=== PATIENT | female | born 1975 | race Hispanic/Latino ===

== ENCOUNTER 2020-02-04 16:59 | Emergency (ER) | payer BC, SELFPAY ==
[2020-02-04] MEDS ORDERED: predniSONE 20 MG TAB ONE (17:26)
[2020-02-04] MEDS ORDERED: IPRATROPIUM BROM 0.5MG/2.5ML ONE (17:26)
[2020-02-04] MEDS ORDERED: ALBUTEROL 2.5 MG/3 ML NEB SOL ONE (17:27)
--- NOTE | 2020-02-04 17:45 | RAD REPORT ---
EXAM DESCRIPTION: RAD - Chest Single View - 02/04/2020 5:38 pm CLINICAL HISTORY: Chest pain;SOB COMPARISON: None TECHNIQUE: AP portable chest image was obtained 02/04/2020 5:38 pm . FINDINGS: Lungs are clear. Heart and vasculature are normal. No measurable pleural effusion and no p neumothorax. No acute bony abnormality seen. No acute aortic findings suspected. IMPRESSION: No acute cardiopulmonary process.
[2020-02-04 17:54] LABS: Absolute Lymphocytes (CBC) 1.6 K/uL (0.7-4.9); Basophils % 1.2 % (0-1.3); Hematocrit 38.7 % (36.0-45.0); Lymphocytes % 28.6 % (15.3-44.8); MPV 9.2 fL (7.6-11.3); RBC Red Blood Cell Count 4.29 M/uL (3.86-4.86)
[2020-02-04 18:03] LABS: Protime INR 0.98
[2020-02-04 18:06] LABS: ALT/SGPT 21 U/L (12-78); AST/SGOT 13 U/L (15-37); Albumin 3.8 g/dL (3.4-5.0); Alkaline Phosphatase 62 U/L (45-117); BUN Blood Urea Nitrogen 8 mg/dL (7-18); Bicarbonate 29 mmol/L (21-32); Bilirubin Direct < 0.1 mg/dL (0-0.2); Bilirubin Total 0.2 mg/dL (0.2-1.0); Glucose Level 124 mg/dL (74-106); NT PRO-BNP 29 pg/mL (<125); Potassium 3.5 mmol/L (3.5-5.1); Protein, Total 7.4 g/dL (6.4-8.2); Sodium Level 143 mmol/L (136-145); Troponin (Emerg Dept Use Only) < 0.02 ng/mL (0.0-0.045)
--- NOTE | 2020-02-04 19:36 | ER ---
Nurse's Notes [facility] Name: Lana Bryant Age: 44 yrs Sex: Female : 1975 Arrival Date: 02/04/2020 Time: 17:02 Bed 13 Private MD: Diagnosis: Shortness of breath;Wheezing Presentation: 02/03 17:13 Chief complaint: Patient states: chest tightness for 1 month, denies cough, fever, em reports shortness of breath that has become worse. Coronavirus screen: The patient has NOT traveled to a country currently being monitored by the [facility] within the last 14 days. The patient has NOT had contact with any known and/or suspected case of coronavirus. Ebola Screen: Patient negative for fever greater than or equal to 101.5 degrees Fahrenheit, and additional compatible Ebola Virus Disease symptoms Patient denies exposure to infectious person. Patient denies travel to an Ebola-affected area in the 21 days before illness onset. No symptoms or risks identified at this time. 17:13 Method Of Arrival: Ambulatory em 17:13 Initial Sepsis Screen: Does the patient meet any 2 criteria? No. Patient's initial em sepsis screen is negative. Does the patient have a suspected source of infection? No. Patient's initial sepsis screen is negative. Risk Assessment: Do you want to hurt yourself or someone else? Patient reports no desire to harm self or others. 17:13 Acuity: VINCENT 3 em 19:10 Onset of symptoms is unknown. Triage Assessment: 19:10 Respiratory: the patient reports symptoms have resolved. 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 - Social history:: Smoking status: . Screenin:18 Abuse screen: Denies threats or abuse. Nutritional screening: No deficits noted. em Tuberculosis screening: No symptoms or risk factors identified. Fall Risk None identified. Assessment: 17:35 General: Appears in no apparent distress. uncomfortable, Behavior is calm, cooperative, em Denies fever. Pain: Denies pain. Neuro: Level of Consciousness is awake, alert, obeys commands, Oriented to person, place, time, situation, Appropriate for age. Cardiovascular: Rhythm is regular. 17:35 Respiratory: Reports shortness of breath at rest Airway is patent Respiratory effort is em even, unlabored, Respiratory pattern is regular, symmetrical, Breath sounds with wheezes bilaterally. Onset: The symptoms/episode began/occurred 1 month, Denies cough. Derm: Skin is intact, is healthy with good turgor, Skin is pink, warm \T\ dry. Musculoskeletal: Capillary refill < 3 seconds, Range of motion: intact in all extremities. 18:30 Reassessment: Patient appears in no apparent distress at this time. Patient and/or em family updated on plan of care and expected duration. Pain level reassessed. Patient states feeling better. Patient states symptoms have improved. 19:15 Reassessment: Patient appears in no apparent distress at this time. Patient and/or wh family updated on plan of care and expected duration. Pain level reassessed. Patient is alert, oriented x 3, equal unlabored respirations, skin warm/dry/pink. Vital Signs: 17:13 BP 115 / 66; Pulse 79; Resp 18; Temp 97.8; Pulse Ox 97% on R/A; Weight 74.84 kg; Height em 5 ft. 0 in. (152.40 cm); Pain 0/10; 19:30 BP 111 / 68; Pulse 76; Resp 18; Pulse Ox 99% on R/A; wh 17:13 Body Mass Index 32.22 (74.84 kg, 152.40 cm) em ED Course: 17:02 Patient arrived in ED. ag5 17:07 Javier Johnson, RN is Primary Nurse. em 17:08 Lázaro Munoz NP is PHCP. pm1 17:09 Samy Bolden MD is Attending Physician. pm1 17:17 Arm band placed on. em 17:18 Patient has correct armband on for positive identification. Placed in gown. Bed in low em position. Call light in reach. Adult w/ patient. residential monitor on. Pulse ox on. NIBP on. 17:19 Triage completed. em 17:30 Initial lab(s) drawn, by me, sent to lab. Inserted saline lock: 20 gauge in right em antecubital area, using aseptic technique. Blood collected. 17:39 XRAY Chest (1 view) In Process Unspecified. EDMS 20:00 No provider procedures requiring assistance completed. IV discontinued, intact, bleeding controlled, No redness/swelling at site. Administered Medications: 17:30 Drug: Albuterol - atroVENT (3:1) (2.5 mg - 0.5 mg) 3 ml Route: Nebulizer; em 18:00 Follow up: Response: No adverse reaction; Marked relief of symptoms em 18:06 Drug: predniSONE 60 mg Route: PO; em 19:17 Follow up: Response: No adverse reaction em Outcome: 19:34 Discharge ordered by MD. pm1 20:03 Discharged to home ambulatory. 20:03 Condition: stable 20:03 Discharge instructions given to patient, Instructed on discharge instructions, follow up and referral plans. medication usage, POC Demonstrated understanding of instructions, follow-up care, medications, POC Prescriptions given X 2. 20:04 Patient left the ED. mw2 Signatures: Dispatcher [employer] EDWI Javier Johnson, RN RN em Lázaro Munoz, TEMPERATURE LOGGING OPERATOR TEMPERATURE LOGGING OPERATOR pm1 Cristal Madison Willy Greenwood mw2 Eli Jackson ag5
--- NOTE | 2020-02-04 19:36 | EDPHYS ---
Physician Documentation [facility] Name: Lana Bryant Age: 44 yrs Sex: Female : 1975 Arrival Date: 02/04/2020 Time: 17:02 Bed 13 Private MD: ED Physician Samy Bolden HPI: 02/03 17:25 This 44 yrs old Female presents to ER via Ambulatory with complaints of pm1 Breathing Difficulty. 17:25 Onset: The symptoms/episode began/occurred Chest tightness for 1 month and increased pm1 shortness of breath. Patient reports some wheezing at home. The patient's shortness of breath is aggravated by General allergies. Has been taking antihistamines at home. Has appointment with [facility] tomorrow. Associated signs and symptoms: Pertinent positives: chest pain, Pertinent negatives: non-productive cough, productive cough, fever, vomiting. Severity of symptoms: in the emergency department the symptoms are worse. The patient has not recently seen a physician, has an appointment scheduled, in 1 day(s). 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 - Social history:: Smoking status: . ROS: 17:25 Constitutional: Negative for fever, chills, and weight loss, ENT: Negative for injury, pm1 pain, and discharge, Neck: Negative for injury, pain, and swelling. 17:25 Abdomen/GI: Negative for abdominal pain, nausea, vomiting, diarrhea, and constipation, Back: Negative for injury and pain, MS/Extremity: Negative for injury and deformity, Skin: Negative for injury, rash, and discoloration, Neuro: Negative for headache, weakness, numbness, tingling, and seizure. 17:25 Cardiovascular: Positive for chest pain, Negative for edema, orthopnea, palpitations. 17:25 Respiratory: Positive for shortness of breath, wheezing, Negative for cough. Exam: 17:25 Constitutional: This is a well developed, well nourished patient who is awake, alert, pm1 and in no acute distress. Head/Face: Normocephalic, atraumatic. ENT: Nares patent. No nasal discharge, no septal abnormalities noted. Tympanic membranes are normal and external auditory canals are clear. Oropharynx with no redness, swelling, or masses, exudates, or evidence of obstruction, uvula midline. Mucous membranes moist. Neck: Trachea midline, no thyromegaly or masses palpated, and no cervical lymphadenopathy. Supple, full range of motion without nuchal rigidity, or vertebral point tenderness. No Meningismus. Chest/axilla: Normal chest wall appearance and motion. Nontender with no deformity. No lesions are appreciated. Cardiovascular: Regular rate and rhythm with a normal S1 and S2. No gallops, murmurs, or rubs. Normal PMI, no JVD. No pulse deficits. 17:25 Abdomen/GI: Soft, non-tender, with normal bowel sounds. No distension or tympany. No guarding or rebound. No evidence of tenderness throughout. Back: No spinal tenderness. No costovertebral tenderness. Full range of motion. Skin: Warm, dry with normal turgor. Normal color with no rashes, no lesions, and no evidence of cellulitis. MS/ Extremity: Pulses equal, no cyanosis. Neurovascular intact. Full, normal range of motion. 17:25 Respiratory: the patient does not display signs of respiratory distress, Respirations: normal, Breath sounds: wheezing: that is mild, is heard in the left posterior lower lobe. 17:25 Neuro: Exam negative for acute changes, Orientation: is normal, Motor: is normal, moves all fours. Vital Signs: 17:13 BP 115 / 66; Pulse 79; Resp 18; Temp 97.8; Pulse Ox 97% on R/A; Weight 74.84 kg; Height em 5 ft. 0 in. (152.40 cm); Pain 0/10; 19:30 BP 111 / 68; Pulse 76; Resp 18; Pulse Ox 99% on R/A; wh 17:13 Body Mass Index 32.22 (74.84 kg, 152.40 cm) em MDM: 17:14 Patient medically screened. pm1 19:33 Data reviewed: vital signs. Data interpreted: Pulse oximetry: on room air is 97 %. pm1 Interpretation: normal. Counseling: I had a detailed discussion with the patient and/or guardian regarding: the historical points, exam findings, and any diagnostic results supporting the discharge/admit diagnosis, lab results, radiology results, the need for outpatient follow up, to return to the emergency department if symptoms worsen or persist or if there are any questions or concerns that arise at home. 02/03 17:15 Order name: Basic Metabolic Panel; Complete Time: 18:58 pm1 02/03 17:15 Order name: CBC with Diff pm1 02/03 17:15 Order name: LFT's; Complete Time: 18:58 pm1 02/03 17:15 Order name: Magnesium; Complete Time: 18:58 pm1 02/03 17:15 Order name: NT PRO-BNP; Complete Time: 18:58 pm1 02/03 17:15 Order name: PT-INR; Complete Time: 18:58 pm1 02/03 17:15 Order name: Troponin (emerg Dept Use Only); Complete Time: 18:58 pm1 02/03 17:15 Order name: XRAY Chest (1 view); Complete Time: 17:58 pm1 02/03 17:15 Order name: EKG; Complete Time: 17:17 pm1 02/03 17:15 Order name: Cardiac monitoring; Complete Time: 17:35 pm1 02/03 17:15 Order name: EKG - Nurse/Tech; Complete Time: 18:27 pm1 02/03 18:09 Order name: CBC Smear Scan EDMS 02/03 17:15 Order name: IV Saline Lock; Complete Time: 17:35 pm1 02/03 17:15 Order name: Labs collected and sent; Complete Time: 17:35 pm1 02/03 17:15 Order name: O2 Per Protocol; Complete Time: 17:35 pm1 02/03 17:15 Order name: O2 Sat Monitoring; Complete Time: 17:35 pm1 Administered Medications: 17:30 Drug: Albuterol - atroVENT (3:1) (2.5 mg - 0.5 mg) 3 ml Route: Nebulizer; em 18:00 Follow up: Response: No adverse reaction; Marked relief of symptoms em 18:06 Drug: predniSONE 60 mg Route: PO; em 19:17 Follow up: Response: No adverse reaction em Disposition: 02/04 07:16 Co-signature as Attending Physician, Samy Bolden MD. rn Disposition: 02/04/20 19:34 Discharged to Home. Impression: Shortness of breath, Wheezing. - Condition is Stable. - Discharge Instructions: Allergies, Adult, How to Use an Inhaler, Shortness of Breath, Shortness of Breath, [id number]. - Prescriptions for Medrol (E[place]on) 4 mg Oral Tablets, Dose Pack - take 1 tablet by ORAL route as directed - follow package instructions; 1 packet. Albuterol Sulfate 90 mcg/actuation - inhale 1-2 puff by INHALATION route every 4-6 hours; 1 Inhaler. - Medication Reconciliation Form, Thank You Letter, Antibiotic Education, Prescription Opioid Use form. - Follow up: Emergency Department; When: As needed; Reason: Worsening of condition. Follow up: Private Physician; When: 2 - 3 days; Reason: Recheck today's complaints, Continuance of care, Re-evaluation by your physician. - Problem is new. - Symptoms have improved. Signatures: Dispatcher [employer] Javier Grier RN RN em Nieto, Roman, MD MD rn Marinas, Patrick, BAG WASHER BAG WASHER pm1 Willy Greenwood mw2 Corrections: (The following items were deleted from the chart) 02/03 20:04 19:34 02/04/2020 19:34 Discharged to Home. Impression: Shortness of breath; Wheezing. mw2 Condition is Stable. Forms are Medication Reconciliation Form, Thank You Letter, Antibiotic Education, Prescription Opioid Use. Follow up: Emergency Department; When: As needed; Reason: Worsening of condition. Follow up: Private Physician; When: 2 - 3 days; Reason: Recheck today's complaints, Continuance of care, Re-evaluation by your physician. Problem is new. Symptoms have improved. pm1
[2020-02-04 20:17] LABS: Platelet Estimate ADEQ; Urine White Blood Cell Casts OK
[2020-02-04 20:18] LABS: Blood Morphology Comment NOTED (NOT SEEN); Poikilocytosis 1+
[2020-02-04 20:43] VITALS: TEMP 97.8
[2020-02-04 20:45] VITALS: BP 111/68; O2SAT 99
--- NOTE | 2020-02-05 06:56 | EKG ---
Test Date: 2020-02-04 Test Time: 18:16:38 Senior Safety Support Manager: LYUBOV MEASUREMENT RESULTS: Intervals: Rate: 78 NV: 148 QRSD: 98 QT: 384 QTc: 437 [place]: P: 49 NV: 148 QRS: 72 T: 71 INTERPRETIVE STATEMENTS: Normal sinus rhythm Normal ECG Compared to ECG 04/14/2016 11:56:27 Sinus bradycardia no longer present Electronically Signed On 02-05-20 06:55:45 CDT by Aly Collins
== END 2020-02-04 20:04 | disposition home or self-care (01) ==
LOC: ER 16:59
DX: R06.2 Wheezing (principal)
CPT/HCPCS: 36415; 71045; 80048; 80076; 83735; 83880; 84484; 85025; 85610; 93005; 94640; 99285; J7512